=== PATIENT | male | born 1950 | race Hispanic/Latino ===

== ENCOUNTER → 2019-12-31 | Outpatient (CLI) | payer BC ==
[~2019-12-31] MED LIST: IOHEXOL-350 75 ML VIAL IV ONE; LEVO750T46 PO
== END | disposition home or self-care (01) ==
LOC: RAH 08:37
PROVIDERS: ATTEND Urology
DX: K44.9 Diaphragmatic hernia without obstruction or gangrene (principal); K57.30 Diverticulosis of large intestine without perforation or abscess without bleeding; K42.9 Umbilical hernia without obstruction or gangrene; K40.90 Unilateral inguinal hernia, without obstruction or gangrene, not specified as recurrent; J98.11 Atelectasis; M47.815 Spondylosis without myelopathy or radiculopathy, thoracolumbar region; R31.0 Gross hematuria
CPT/HCPCS: 74178; Q9967